=== PATIENT | female | born 1960 | race Caucasian/White ===

== ENCOUNTER 2017-03-20 08:00 | Day surgery (SDC) | payer OTHER ==
[~2017-03-20] VITALS: Ht 157.5 cm; Wt 65.3 kg
[~2017-03-20 08:00] MED LIST: 0.9% Sodium Chloride 1,000 ML IV SCH; CETI10CA PO; LOSA1TAB69 PO; Sodium Chloride LOK Flush 10 mL Syringe IV PRN; fentaNYL-PF 50 mCg/mL 2 mL Inj IVPUSH PRN
[2017-03-20] MEDS ORDERED: Propofol 10,000 mCg/mL 20 mL Inj ONE (08:01)
[2017-03-20] MEDS ORDERED: Ketamine 10 mg/mL 20 mL Inj ONE (08:01)
[2017-03-20 08:34] VITALS: BP 133/86; PULSE 97; RESP 16; O2SAT 100
[2017-03-20] MEDS ORDERED: Lactated Ringer's 1,000 ML IV ONE (09:10)
[2017-03-20] MEDS ORDERED: Lactated Ringer's 1,000 ML IV SCH (09:10)
[2017-03-20] MEDS ORDERED: Ondansetron 2 mg/mL 2 mL Inj IVPUSH PRN (09:10)
[2017-03-20] MEDS ORDERED: MetoCLOpramide 5 mg/mL 2 mL Inj IVPUSH PRN (09:10)
--- NOTE | 2017-03-20 09:10 | PCM.HPANE ---
Patient Data Surgeon Admitting Provider: Attending Provider:Dallin Fonseca MD Primary Care Physician:Randy Redmond PA-C Other Provider: Reason for Visit Colon Cancer Screening, Dyspepsia Ht/WT & BMI Height (Feet): 5 Height (Inches): 2 Weight (Kilograms): 65.32 Body Mass Index 26.00 Allergies Coded Allergies: Sulfa (Sulfonamide Antibiotics) (Verified Allergy, Unknown, 03/19/17) cephalexin (Verified Allergy, Unknown, 03/19/17) lisinopril (Verified Allergy, Unknown, 03/19/17) Past Anesthesia History Anesthesia History: Denies:: Abnormal Airway, Anesthesia Reactions, Difficult Intubation, Fam Anesthesia Reaction, Fam Malignant Hypertherm, Malignant Hyperthermia Diabetes History Hx Diabetes?: No MRSA MRSA: No Medications Hypertension Medication: Yes Home Meds Incl Beta Kenneth: No Reported Medications Losartan/HCTZ 50-12.5 mg 1 Each Tablet1 Tablet PO DAILY Ref 0 03/19/17 Cetirizine HCl (Zyrtec)10 Mg [id number] Mg PO HS #30 CAPSULE Ref 0 03/19/17 History History of ENT Problems?: No HEENT History: Denies:: Hearing Problem Denture Type: None Teeth Condition: Within Normal Limits Other HEENT Pertinent History: dentures at home Hx of Heart Problems?: Yes Cardiovascular History: Positive for:: Hypertension Hx of Respiratory Problem?: No Respiratory History: Denies:: Asthma COPD Chest Surgery Cough Dyspnea Emphysema Hemoptysis Oxygen Administration Pneumonia Pulmonary Embolism Tuberculosis Use of C-PAP Machine Use of Inhalers / NEBS Hx Neurologic Problems?: No Neurological History: Denies:: CVA Hx of GI Problems?: Yes Gastrointestinal History: Positive for:: Heartburn Other GI Pertinent History: belching Hx of Problems?: No Genitourinary History: Denies:: HX of Hemodialysis Kidney Stones Urinary Tract Infection HX of Peritoneal Dialysis: No Female Hx: Denies:: Currently (post menapause) Hx Musculoskeletal Problems?: No Musculoskeletal History: Denies:: Back Injury Degenerative Joint Fibromyalgia Joint Replacement Musculoskeletal Trauma Myasthenia Gravis Osteoarthritis Rheumatoid Arthritis Systemic Lupus Hx of Psycho/Social Problems?: Yes Psycho Social History: Denies:: Anxiety Bipolar Disorder Hx Depression Suicide Attempt Hx Surgeries?: Yes (, left leg) Hx Any Other Health Problems?: No Hx Alcohol Use: NoHx Substance Use: Yes (hx iv drug abuse) Smoking Status: Current Every Day Smoker Stop/Bang Treated for Sleep Apnea?: No Do You Have a CPAP Machine?: No S-Snoring: Do You Snore Loudly: No T-Tired: feel tired, fatigued: No O-Obsered: Observed not breath: No P-Blood Pressure: treated: Yes B- Body Mass Index > 35 kg/m2: No A- Age over 50: Yes N- Neck Large Circumference: No G- Gender Male: No SHEELA Total Score: 2 SHEELA Risk Assessment: Low Risk, <3 Yes Risk Assessment Category Category 1A: Patient has history of documented sleep apnea, and HAS NOT received any narcotic, sedative or anesthesia administration during this stay. Category 1B: Patient has history of documented sleep apnea, and HAS received any narcotic , sedative or anesthesia administration during this stay Category 2: Patient has SUSPECTED Obstructive Sleep Apnea, and HAS received any narcotic , sedative or anesthesia administration during this stay. Category 3: Patient has SUSPECTED Obstructive Sleep Apnea and HAS NOT received narcotic, sedative or anesthesia administration during this stay. Category 4: Outpatient in Procedural Areas with known sleep apnea or who screen positive for High Risk via the STOP/BANG questionnaire. Exam Exam Vital Signs Vital Signs Date Time Temp Pulse Resp B/P Pulse Ox O2 Delivery O2 Flow Rate FiO2 03/20/17 08:34 97 16 133/86 100 Room Air General Appearance: Alert, Oriented X3, Cooperative, No Acute Distress HEENT/AIRWAY: MP 2 Lungs: Clear to Auscultation, Normal Air Movement Heart: Exam Unremarkable, Regular Rate/Rhythm, No Murmurs/Rubs/Gallops Plan Impression Patient chart reviewed, patient interviewed and anesthestic plan with risks, benefits, and alternatives discussed, and informed consent obtained. ASA Physical Status: ASA2 Mod Systemic Disease (hx ivda) Anesthetic Plan: MAC Bene/Risks/Altern/Consents: Yes HP Complete Prior to Induction: Yes Seth Salinas MD Mar 20, 2017 09:10
[2017-03-20 09:41] VITALS: BP 109/53; PULSE 86; RESP 14; O2SAT 99
[2017-03-20 09:55] VITALS: BP 97/59; PULSE 87; RESP 12; O2SAT 100
--- NOTE | 2017-03-20 09:59 | ENDO ---
[address] [address] ENDOSCOPY PROCEDURE PATIENT: LIANA DICKERSON : 1960 MR#: [id number] ADMIT: 03/20/2017 JOB ID: [id number] DATE OF SERVICE: 03/20/2017 TYPE OF OPERATION: 1. Esophagogastroduodenoscopy with biopsy. 2. Colonoscopy with biopsy and hot snare polypectomy. PREOPERATIVE DIAGNOSES: 1. Dyspepsia. 2. Colorectal cancer screening. POSTOPERATIVE DIAGNOSES: 1. Normal upper endoscopy, status post biopsy. 2. Mild sigmoid diverticulosis. 3. Five 2-mm sigmoid polyps, removed by cold biopsy forceps. 4. An 8-mm polyp in the sigmoid colon, removed by hot snare polypectomy. 5. Small internal hemorrhoids. ANESTHESIA: Monitored anesthesia care. COMPLICATIONS: None. BLOOD LOSS: Minimal. DESCRIPTION OF PROCEDURE: After risks and benefits were explained to the patient, informed consent was obtained. After anesthesia administered, an upper endoscope was then inserted into the mouth, intubated into the esophagus, stomach, second portion of duodenum. Mucosa carefully examined. After procedure was done, the scope withdrawn and procedure terminated. Colonoscope was then inserted from rectum to cecum. Mucosa was carefully examined. Prep of the patient was fair. After the procedure done, the scope withdrawn and procedure terminated. FINDINGS: Upon inspection of the esophagus, the esophagus was normal without masses, ulcers, or lesions. Z-line located 40 cm from incisors. Upon entering the stomach, the stomach was normal without masses, ulcers, or lesions. Retroflexion normal. Duodenal bulb, first and second portions normal. Biopsies taken of the duodenum, antrum, body of stomach. Upon inspection of the anus, no masses, hemorrhoids, ulcers, or lesions were seen. Throughout the entire examination, there is mild sigmoid diverticulosis. There were five 2-mm sigmoid polyps removed by cold biopsy forceps. There was also an 8-mm polyp in the sigmoid colon, removed by hot snare polypectomy. Retroflexion showed small internal hemorrhoids. IMPRESSION: 1. Normal upper endoscopy, status post biopsy. 2. Small internal hemorrhoids. 3. Five 2-mm sigmoid polyps, removed by cold biopsy forceps. 4. There was an 8-mm sigmoid polyp, removed by hot snare polypectomy. RECOMMENDATIONS: Await pathology results. Follow up with [facility] Tito [facility]. If three or more tubular adenoma polyps, the next colonoscopy in three years. If less than three tubular adenoma polyps, next colonoscopy in five years.
[2017-03-20 10:05] VITALS: BP 140/97; PULSE 82; RESP 14; O2SAT 100
--- NOTE | 2017-03-22 16:25 | PATH ---
SURGICAL PATHOLOGY Attending Physician:Dallin Fonseca MD CASE STATUS: Signed Out PATIENT NAME: LIANA DICKERSON PID: [id number] : 1960 DATE COLLECTED:03/20/2017 20:45 SPECIMEN: 1: Duodenum, Biopsy 2: Stomach, Antrum, Biopsy 3: Gastric, Biopsy 4: Colon, Biopsy CLINICAL HISTORY: GERD, ABDOMINAL PAIN 1). DUODENUM BIOPSY 2). ANTRUM BIOPSY 3). GASTRIC BODY BIOPSY 4). SIGMOID COLON POLYPS X6 FINAL DIAGNOSIS: 1. Duodenum, Biopsy: Duodenal mucosa with no diagnostic abnormality. Negative for active inflammation, features of sprue, dysplasia, or malignancy. 2. Antrum, Biopsy: Gastric antral-type mucosa with mild chronic gastritis. Negative for H. pylori organisms by H&E stain. Negative for dysplasia and malignancy. 3. Gastric Body, Biopsy: Gastric body-type mucosa with mild chronic gastritis. Negative for H. pylori organisms by immunohistochemistry studies. The control tissue stained appropriately. Negative for dysplasia and malignancy. 4. Sigmoid Colon, Polyps, Biopsies: Portions of polyp with features of sessile serrated adenoma. ICD10: K63.5 GROSS DESCRIPTION: The specimen is received in four formalin filled containers labeled with the patient's name. 1). The specimen is sublabeled "duodenum" consists of 2 portions of tissue which aggregate to 0.3 x 0.3 x 0.2 CM. The specimen is entirely submitted in cassette 1A. 2). The specimen is sublabeled "antrum" and consists of 2 portions of tissue which aggregate to 0.3 x 0.3 x 0.3 CM. The specimen is entirely submitted in cassette 2A. 3). The specimen is sublabeled "gastric body" and consists of 2 portions of tissue which aggregate to 0.4 x 0.3 x 0.2 CM. The specimen is entirely submitted in cassette 3A. 4). The specimen is sublabeled "sigmoid colon polyps" consists of 3 portions of tissue which aggregate to 0.6 x 0.6 x 0.4 CM. The specimen is entirely submitted in cassette 4A. 03/20/2017 DAC MICRO DESCRIPTION: IMMUNOHISTOCHEMISTRY: Block 3A: H. pylori: Negative. * This test was developed and its performance characteristics determined by [facility]. It has not been cleared or approved by the U.[place]. Food and Drug Administration. The FDA has determined that such clearance or approval is not necessary. This test is used for clinical purposes. It should not be regarded as investigational or for research. ICD-9 CODES: CPT CODES: 1: 17791 2: 46482, 29427 3: 98591, 53837 4: 57072 Electronically Signed Out Amelie Almendarez MD [facility] Pathology [facility] [address], [place] [address] Technical component performed at [facility], [address], [place], [address]
== END 2017-03-20 23:59 ==
LOC: END 08:00
PROVIDERS: ATTEND Internal Medicine Gastroenterology
DX: Z12.11 Encounter for screening for malignant neoplasm of colon (principal); D12.5 Benign neoplasm of sigmoid colon; R10.13 Epigastric pain; B18.2 Chronic viral hepatitis C; I10 Essential (primary) hypertension; K57.30 Diverticulosis of large intestine without perforation or abscess without bleeding; K64.8 Other hemorrhoids; F17.200 Nicotine dependence, unspecified, uncomplicated
CPT/HCPCS: 43239; 45380; 45385; 88305; 88342; J2250; J7120